=== PATIENT | male | born 1980 | race Caucasian/White ===

== ENCOUNTER 2023-01-08 10:29 | Outpatient (OUT) | payer OTHER, SELFPAY | END 2023-01-08 10:30 | disposition home or self-care (01) | LOC: WC 10:41 | PROVIDERS: PCP Student in an Organized Health Care Education/Training Program; Visit Provider Student in an Organized Health Care Education/Training Program | DX: S90.422A Blister (nonthermal), left great toe, initial encounter (principal); L08.89 Other specified local infections of the skin and subcutaneous tissue | CPT/HCPCS: 99212; G0463 ==

== ENCOUNTER 2023-01-20 08:55 | Outpatient (OUT) | payer OTHER, SELFPAY | END 2023-01-20 08:56 | disposition home or self-care (01) | LOC: WC 08:55 | PROVIDERS: PCP Student in an Organized Health Care Education/Training Program; Visit Provider Podiatrist Foot & Ankle Surgery | DX: S90.422A Blister (nonthermal), left great toe, initial encounter (principal); L08.89 Other specified local infections of the skin and subcutaneous tissue; L60.3 Nail dystrophy | CPT/HCPCS: 11042 ==

== ENCOUNTER 2023-02-09 08:59 | Outpatient (OUT) | payer OTHER, SELFPAY | END 2023-02-09 09:00 | disposition home or self-care (01) | LOC: WC 08:59 | PROVIDERS: PCP Student in an Organized Health Care Education/Training Program; Visit Provider Podiatrist Foot & Ankle Surgery | DX: S90.422A Blister (nonthermal), left great toe, initial encounter (principal); L08.89 Other specified local infections of the skin and subcutaneous tissue | CPT/HCPCS: G0463 ==